=== PATIENT | male | born 1955 | race Caucasian/White ===

== ENCOUNTER 2019-07-27 09:26 | Emergency (ER) | payer BC ==
--- NOTE | 2019-07-27 10:37 | ED Physician Documentation ---
PD HPI SKIN - Stated complaint Stated Complaint: SOA - Chief complaint Chief Complaint: Allergic Rx - History obtained from History obtained from: Patient - History of Present Illness Timing - onset: How many days ago (4-5) Timing - duration: Days (4-5) Timing - details: Abrupt onset, Still present, Waxing and waning Location: Face (today, with swelling lips and feeling of tightness in throat.), Bodywide (for 4 days) Quality / character: Itchy Associated symptoms: Facial swelling (today). No: Fever, Myalgias, Dyspnea (but feeling of tightness in throat.), N/V/D Similar symptoms before: Has not had sx before Recently seen: Not recently seen (but had refill of his metformin that he has been on longer term, but the newest refill was of a different collar worker, so different appearance of the pills, and had started that the day prior to onset of the rash symptoms.) Review of Systems Constitutional: reports: Fatigue. denies: Fever, Chills, Myalgias Nose: denies: Rhinorrhea / runny nose, Congestion Throat: denies: Sore throat Respiratory: denies: Cough GI: denies: Nausea, Vomiting, Diarrhea Skin: reports: Rash Neurologic: denies: Generalized weakness, Near syncope, Altered mental status, Headache PD PAST MEDICAL HISTORY - Past Medical History Past Medical History: Yes Cardiovascular: Hypertension Respiratory: None Endocrine/Autoimmune: Type 2 diabetes GI: None - Past Surgical History Ortho: Knee replacement, Shoulder arthroplasty - Present Medications Home Medications: Ambulatory Orders Medication Instructions Recorded Confirmed Cetirizine [ZyrTEC] 10 mg PO BID #15 tablet 07/27/19 dexAMETHasone [Decadron] 4 mg PO DAILY #5 tablet 07/27/19 - Allergies Allergies/Adverse Reactions: Allergies Allergy/AdvReac Type Severity Reaction Status Date / Time No Known Drug Allergies Allergy Verified 07/27/19 09:37 - Social History Does the pt smoke?: No Smoking Status: Never smoker Does the pt drink ETOH?: No Does the pt have substance abuse?: No - Immunizations Immunizations are current?: Yes - POLST Patient has POLST: No PD ED PE NORMAL - Vitals Vital signs reviewed: Yes - General General: Alert and oriented X 3, No acute distress, Well developed/nourished - HEENT HEENT: Moist mucous membranes. No: Pharynx benign (lips with mild swelling, more of lower lip. There is minimal uvular edema. No apparent tongue nor palattine edema. Normal breathing; minimal hoarseness with slight cough. ) - Neck Neck: Supple, no meningeal sign, No adenopathy - Cardiac Cardiac: RRR, No murmur - Respiratory Respiratory: Clear bilaterally - Abdomen Abdomen: Soft, Non tender - Derm Derm: Normal color, Warm and dry - Neuro Neuro: Alert and oriented X 3, No motor deficit, Normal speech Results - Vitals Vitals: Vital Signs - 24 hr 07/27/19 07/27/19 07/27/19 09:34 09:55 11:01 Temperature 37.1 C 37 C 37 C Heart Rate 72 65 60 Respiratory 18 18 14 Rate Blood Pressure 144/84 H 148/91 H 141/98 H O2 Saturation 97 96 96 07/27/19 12:10 Temperature 36.9 C Heart Rate 56 L Respiratory 16 Rate Blood Pressure 107/90 H O2 Saturation 98 Oxygen O2 Source Room air - Labs Labs: Laboratory Tests 07/27/19 09:48 Sodium 137 Potassium 3.9 Chloride 102 Carbon Dioxide 25 Anion Gap 10.0 BUN 19 Creatinine 1.0 Estimated GFR (MDRD) 76 L Glucose 152 H Calcium 9.0 Total Bilirubin 0.9 AST 25 ALT 33 Alkaline Phosphatase 44 Total Protein 8.1 Albumin 4.2 Globulin 3.9 Albumin/Globulin Ratio 1.1 Lipase 39 PD MEDICAL DECISION MAKING - ED course Complexity details: considered differential (has been on metformin but got new Rx that was of a different collar worker and started it day before rash. So timing is suspect. However is on Lisinopril too and would be cautious not to miss JENN reaction as would not want it to get increasing angioedema. Has had slow onset and progression of symptoms, so I would not expect abrupt progression of angioedema, and so did not feel need to have him stay in ER for watching. ), d/w patient Departure - Departure Disposition: 01 Home, Self Care Clinical Impression: Acute allergic reaction Qualifiers: Encounter type: initial encounter Qualified Code(s): T78.40XA - Allergy, unspecified, initial encounter Condition: Stable Record reviewed to determine appropriate education?: Yes Instructions: ED Allergic Reaction General Other Prescriptions: Cetirizine [ZyrTEC] 10 mg PO BID #15 tablet dexAMETHasone [Decadron] 4 mg PO DAILY #5 tablet Comments: I would hold your lisinopril and metformin for now. The timing with the new prescription of metformin would be suspicious. The association of allergic reactions with lisinopril is concerning as well. Your reaction may be to something entirely different but those would be the most suspect at the moment. Use cetirizine antihistamine and Decadron steroid as prescribed over the next 4 to 5 days. Recheck if not improved well over the next 1 or 2 days. If you are improved well then finish out the medicines over 4 to 5 days and see how you do for a few days off of that. If no return of the hives or throat swelling, then resume your metformin for a few days and see if you have a return of symptoms. If you are still good with that then discuss with your primary care whether to resume your lisinopril or change onto a different blood pressure medicine. Discharge Date/Time: 07/27/19 12:19
[2019-07-27] MEDS ORDERED: FAMOTIDINE 20 MG TABLET PO STA (11:10)
[2019-07-27] MEDS ORDERED: diphenhydrAMINE INJ 50 MG/ML VIAL IVP STA (11:10)
[2019-07-27] MEDS ORDERED: DEXAMETHASONE 10 MG/ML VIAL IVP STA (11:10)
[2019-07-27] MEDS ORDERED: CETIRIZINE 10 MG TABLET PO STA (11:10)
[2019-07-27 11:26] LABS: ALBUMIN 4.2 g/dL (3.2-5.5); ALBUMIN/GLOBULIN RATIO 1.1 (1.0-2.2); BILIRUBIN,TOTAL 0.9 mg/dL (0.2-1.0); TOTAL PROTEIN 8.1 g/dL (6.7-8.2)
[2019-07-27 12:11] VITALS: BP 107/90
== END 2019-07-27 12:19 | disposition home or self-care (01) ==
LOC: ED 09:26
DX: T78.40XA Allergy, unspecified, initial encounter (principal); R21 Rash and other nonspecific skin eruption; R22.0 Localized swelling, mass and lump, head; E11.9 Type 2 diabetes mellitus without complications; Z79.84 Long term (current) use of oral hypoglycemic drugs; I10 Essential (primary) hypertension
CPT/HCPCS: 36415; 80053; 83690; 96374; 99283; 99284; A9270; J1200